=== PATIENT | female | born 1990 | race Two or more races ===

== ENCOUNTER 2016-12-21 11:23 | Day surgery (SDC) | payer MEDICAID, OTHER ==
[~2016-12-21 11:23] MED LIST: BUPIVACAINE-EPI 0.25%-1:200000 MPF 30 ML VIAL. ONE; DEXAMETHASONE SOD PHOS 20 MG/5 ML VIAL. ONE; GLYCOPYRROLATE 1 MG/5 ML VIAL. ONE; HYDROmorphone 2 MG/ML VIAL IV PRN; IV RINGERS,LACTATED 1000ML 1,000 ML IV SCH; KETOROLAC 30 MG/ML INJ FOR OR. INJ ONE; LIDOCAINE 1% PF 2 ML VIAL. ID PRN; LIDOCAINE 2% PF Vial for OR 5 ML VIAL. ONE; MIDAZOLAM HCL/PF 2 MG/2 ML VIAL. ONE; NEOSTIGMINE METHYLSULFATE 5 MG/5 ML SYRINGE. ONE; ONDANSETRON PF 4 MG/2 ML VIAL. IV PRN; ONDANSETRON PF 4 MG/2 ML VIAL. ONE; PREN1TAB58 PO; PROCHLORPERAZINE 10 MG/2 ML VIAL. IV PRN; PROPOFOL 20 ML IV ONE; ROCURONIUM 100 MG/10 ML VIAL. ONE; SEVOFLURANE 61 TO 120 MINUTES. IH ONE; fentaNYL PF VIAL 100 MCG/2 ML VIAL IV PRN; fentaNYL PF VIAL 100 MCG/2 ML VIAL ONE
[2016-12-21] MEDS ORDERED: IBUP-1027 PO (12:01)
[2016-12-21] MEDS ORDERED: BUPIVACAINE-EPI 0.25%-1:200000 50 ML VIAL. ONE (12:15)
[2016-12-21 12:23] LABS: NEG OBC UR NEG; POS OBC UR POS
--- NOTE | 2016-12-21 14:13 | DISCH ---
DISCHARGE INSTRUCTIONS Condition on Discharge Condition on Discharge: Stable Activity After Discharge Activity Instructions for Disc: Activity as tolerated Driving Instructions after Dis: Do not drive today Diet after Discharge Diet after Discharge: Regular Contacting the [facility] after DC Call your doctor for: Concerns you may have Follow-Up Follow up with: Dr. Jackson in 1 week. JOE JACKSON Jr, MD Dec 21, 2016 14:13
--- NOTE | 2016-12-21 14:13 | PDOC ---
BRIEF OPERATIVE NOTE Pre-Op Diagnosis Sterilization Post-Op Diagnosis Same Procedure Performed [facility] BTL Surgeon Dr. Jackson Anesthesia Type: General Blood Loss Less than 5 ml Specimens Obtained none Findings nml size uterus, nml fallopian tubes and ovaries kenan. Complications filshie clip on left round ligament JOE JACKSON Jr, MD Dec 21, 2016 14:13
[2016-12-21] MEDS ORDERED: OXYC-323 PO (14:18)
[2016-12-21] MEDS: fentaNYL PF VIAL 100 MCG/2 ML VIAL IV PRN ×2 (14:22→14:35)
--- NOTE | 2016-12-21 14:37 | OP ---
DATE OF SURGERY: PREOPERATIVE DIAGNOSIS: Sterilization. POSTOPERATIVE DIAGNOSIS: Sterilization. PROCEDURE: Laparoscopic BTL with Filshie clips. SURGEON: Bart Jackson MD ANESTHESIA: GETA. ESTIMATED BLOOD LOSS: Less than 5 mL. COMPLICATIONS: Filshie clip on the left round ligament. Otherwise, no complications. SUMMARY: A 26-year-old, desires permanent sterilization. She was counseled on the risks, benefits and expectations and voiced a clear understanding to proceed. The patient was also counseled on the failure rate, less than 1%, and voiced clear understanding to proceed. DESCRIPTION OF PROCEDURE: The patient was taken to surgery suite, placed in dorsal lithotomy position. She was prepped with Betadine for vaginal prep and ChloraPrep for abdominal prep. After adequate anesthesia, bivalve speculum was placed vaginally. Anterior lip of the cervix was grasped with a single tooth tenaculum. [place] uterine manipulator was then placed. The bivalve speculum was removed. Attention was placed on the abdomen in which a small transverse skin incision was made just below the umbilicus with a scalpel. The Veress needle was then placed through the infraumbilical incision site. The abdomen was allowed to insufflate up to 1.5 liters of CO2 gas. The Veress needle was then removed. A 5 mm trocar was placed. The camera was positioned. The uterus appeared normal sized. Fallopian tubes and ovaries appeared normal bilaterally. A second incision was made in the left lower quadrant with a scalpel in which 8 mm trocar was placed. The Filshie clip applicator was then placed and applied what appeared to be the left fallopian tube. Upon further evaluation, it was the left round ligament. Another Filshie clip was then applied to the isthmus region of the left fallopian tube, totally occluding the left fallopian tube. Same process took place at the right fallopian tube. The trocars were then removed under direct visualization. The abdomen was allowed to deflate as much as possible along with mechanical manipulation. The two skin incisions were reapproximated using 4-0 Vicryl suture in subcuticular manner. A 0.25% Marcaine with epinephrine was injected at each incision site. Uterine acorn manipulator and single tooth tenaculum were then removed. The patient tolerated the procedure well and was taken to recovery room in stable condition. Sponge and needle counts correct times 3. BART JACKSON MD DR: ELISABETH/eleazar JOB#: [id number] / [id number]
[2016-12-21] MEDS: MORPHINE SULFATE 2 MG/ML DISP.SYRIN. IV PRN ×2 (14:41→14:57)
[2016-12-21] MEDS ORDERED: oxyCODONE/APAP 5/325 1 TAB TABLET PO ONE (15:00)
[2016-12-21 16:18] VITALS: BP 122/77
== END 2016-12-21 16:24 | disposition home or self-care (01) ==
LOC: SURG 11:23
PROVIDERS: ATTEND Obstetrics & Gynecology
DX: Z30.2 Encounter for sterilization (principal); I10 Essential (primary) hypertension; J45.909 Unspecified asthma, uncomplicated
CPT/HCPCS: 58671; 81025; A4215; J0690; J1100; J1885; J2250; J2270; J2405; J2704; J2710; J3010; J3490; J2001